=== PATIENT | female | born 1950 | race Caucasian/White ===

== ENCOUNTER 2020-03-21 06:52 | Observation (INO) | payer MEDICARE, OTHER ==
[2020-03-16 10:11] LABS: BASOPHILS # (AUTO) 0.1 (0.0-0.1); BASOPHILS % 1.1 % (0.0-1.0); EOSINOPHILS # (AUTO) 0.3 (0.0-0.4); EOSINOPHILS % 4.9 % (0.0-6.0); HEMOGLOBIN 12.6 g/dL (12.0-16.0); LYMPHOCYTES % 36.7 % (18.0-39.1); MEAN CORPUSCULAR HGB CONC 31.5 g/dL (31-35); MEAN CORPUSCULAR VOLUME 95.2 fL (81-99); MONOCYTES # (AUTO) 0.4 (0.2-0.8); MONOCYTES % 6.6 % (4.4-11.3); NEUTROPHILS # (AUTO) 2.8 (2.1-6.9); NEUTROPHILS % 50.5 % (38.7-80.0); PLATELET COUNT 176 x10e3/uL (140-360); RED CELL DISTRIBUTION WIDTH 13.2 % (11.7-14.4)
--- NOTE | 2020-03-16 10:17 | Diagnostic Imaging Report ---
EXAMINATION: CHEST 2 VIEWS INDICATION: Pre-operative COMPARISON: None FINDINGS: LINES/TUBES:None LUNGS:The lungs are mildly hyperinflated. No focal consolidation or pulmonary edema. PLEURA:No pleural effusion or pneumothorax. MEDIASTINUM:The cardiomediastinal silhouette appears normal in size and shape. BONES/SOFT TISSUES:No acute osseous injury. ABDOMEN:No free air under the diaphragm. IMPRESSION: No focal pneumonia or pulmonary edema. Signed by: Jovanni Pa MD on 03/16/2020 10:14 AM
[2020-03-16 10:25] LABS: ANION GAP 15.8 mmol/L (8-16); BLOOD UREA NITROGEN 9 mg/dL (7-26); BUN/CREATININE RATIO 12 (6-25); CALCIUM 9.6 mg/dL (8.4-10.2); CARBON DIOXIDE 26 mmol/L (22-29); CHLORIDE 104 mmol/L (98-107); CREATININE, SERUM 0.77 mg/dL (0.57-1.11); EST GLOMERULAR FILTRATION RATE > 60 ML/MIN (60-); GLUCOSE 117 mg/dL (74-118); POTASSIUM 3.8 mmol/L (3.5-5.1); SODIUM 142 mmol/L (136-145)
[2020-03-16 10:34] LABS: CLARITY,URINE CLEAR (CLEAR); COLOR,URINE YELLOW (YELLOW)
[2020-03-16 10:35] LABS: BILIRUBIN,URINE NEGATIVE (NEGATIVE); KETONES,URINE NEGATIVE (NEGATIVE); LEUKOCYTE ESTERASE ,URINE NEGATIVE (NEGATIVE); NITRITE,URINE NEGATIVE (NEGATIVE); PROTEIN,URINE DIPSTICK NEGATIVE (NEGATIVE); URINE UROBILINOGEN 0.2 mg/dL (0.2 - 1)
[~2020-03-21] VITALS: Ht 162.6 cm; Wt 93.9 kg
[~2020-03-21 06:52] MED LIST: ATENOLOL50 MG PO; CALCIUM CITRAT1 EA15 PO; CITALOPRAM HBR20 MG PO; COLLAGEN PLUS1 EACH PO; FOLIC ACID PO; GABAPENTIN300 MG PO; LATANOPROST2.5 ML OU; NORCO 10-325 T1 EACH PO; PAMELOR10 MG PO; PROTONIX20 MG PO; QUESTRAN PACKET4 GM PO; SIMVASTATIN80 MG PO; TIZANIDINE HCL4 MG PO; VALACYCLOVIR500 MG PO; VITAMIN D325 MCG PO
[2020-03-21] MEDS ORDERED: CEFAZOLIN SOD 1 GM/NS 50ML 100 ML IV ONE (08:58)
[2020-03-21] MEDS ORDERED: BACITRACIN 50,000 UNIT VIAL ONE (09:03)
[2020-03-21] MEDS ORDERED: NALOXONE HCL INJ 0.4 MG/ML AMP IV PRN (13:00)
[2020-03-21] MEDS ORDERED: DIPHENHYDRAMINE HCL INJ 50 MG/ML VIAL IV PRN (13:00)
[2020-03-21] MEDS: SODIUM CHLORIDE 0.9% 1000ML 1,000 ML IV SCH ×2 (13:00→22:23)
[2020-03-21] MEDS ORDERED: FENTANYL CITRATE/PF 100MCG/2 ML INJ ONE ×2 (13:28→15:31)
--- OUTSIDE RECORDS SUMMARY | 2020-03-21 14:12 | XMS REPORT | Clinical Summary ---
Author Author [facility] Address Unknown Phone Unavailable Care Team Providers Care Frit Burner Name Role Phone Tamara Carroll MD PCP Allergies No Known Allergies Medications End Date Status Medication Sig Dispensed Refills Start Date Active varenicline tartrate Take by mouth 0 (CHANTIX ORAL) 2 (two) times a day. Active atenoloL (TENORMIN) 25 MG Take 25 mg by 0 tablet mouth 2 (two) times a day. Active pantoprazole (PROTONIX) Take 40 mg by 0 40 MG EC tablet mouth daily. Active citalopram (CeleXA) 40 MG Take 40 mg by 0 tablet mouth daily. Active simvastatin (ZOCOR) 80 MG Take 80 mg by 0 tablet mouth nightly. 1/2 tab QHS Active niacin 500 MG tablet Take 500 mg 0 by mouth daily with breakfast. Active gabapentin (NEURONTIN) Take 300 mg 0 300 mg capsule by mouth 2 (two) times a day. Active nortriptyline (PAMELOR) Take 10 mg by 0 10 MG capsule mouth nightly. Active FOLIC ACID ORAL Take by 0 mouth. Active VITAMIN B COMPLEX ORAL Take by 0 mouth. Active cholecalciferol, vitamin Take by mouth 0 D3, (VITAMIN D3 ORAL) 2 (two) times a day. Active tiZANidine (ZANAFLEX) 4 Take 4 mg by 0 MG tablet mouth every 8 (eight) hours as needed for muscle spasms. Active CALCIUM ORAL Take 2 0 tablets by mouth 2 (two) times a day. Active cholestyramine (QUESTRAN) Take 1 packet 0 4 gram packet by mouth 2 (two) times a day with meals. Active Problems No known active problems Encounters Care Team Description Date Type Specialty Kayode Larios II, MD Encounter for gynecological examination (general) (routine) without abnormal findings (Primary Dx); Screening for malignant neoplasm of the cervix 12/13/2019 Office Visit Obstetrics and Gyne cology Tamara Carroll MD Encounter for screening mammogram for ma lignant neoplasm of breast (Primary Dx) 11/29/2019 Transcribe Access Orders Tamara Carroll MD Screening for osteoporosis (Primary Dx) 06/15/2019 Transcribe Access Orders after 03/21/2019 Family History Medical History Relation Name Comments Alcohol abuse Father Heart disease Mother Hyperlipidemia Mother Hypertension Mother Relation Name Status Comments Father Mother Social History Date Tobacco Use Types Packs/Day Years Used Former Smoker Smokeless Tobacco: Never Used Sex Assigned at Date Recorded Not on file Industry Job Start Date Occupation Not on file Not on file Not on file Travel End Travel History Travel Start No recent travel history available. Last Filed Vital Signs Reading Time Taken Comments Vital Sign 134/87 12/13/2019 10:46 AM FLIGHT DIRECTOR Blood Pressure 65 12/13/2019 10:46 AM FLIGHT DIRECTOR Pulse - - Temperature - - Respiratory Rate - - Oxygen Saturation - - Inhaled Oxygen Concentration 89.4 kg (197 lb) 12/13/2019 10:46 AM FLIGHT DIRECTOR Weight 162.6 cm (5' 4") 12/13/2019 10:46 AM FLIGHT DIRECTOR Height 33.81 12/13/2019 10:46 AM FLIGHT DIRECTOR Body Mass Index Plan of Treatment Health Maintenance Due Date Last Done Comments COLONOSCOPY SCREENING 2001 SHINGLES VACCINES (#1) 2001 65+ PNEUMOCOCCAL VACCINE 2016 (1 of 2 - PCV13) INFLUENZA VACCINE 05/19/2020 BREAST CANCER SCREENING 12/01/2021 12/01/2019, 04/15/2018, 12/26/2016 Procedures Comments Procedure Name Priority Date/Time Associated Diag nosis THINPREP TIS PAP AND HPV Routine 12/13/2019 Scree francois for malignant MRNA E6/E7 REFLEX HPV 11:12 AM FLIGHT DIRECTOR neoplasm of the cervix 16,18/45 MAMMO BREAST SCREEN Routine 12/01/2019 Encounter for screening TOMOSYNTHESIS BILATERAL 1:55 PM FLIGHT DIRECTOR mammogram for malignant neoplasm of breast BONE DENSITY Routine 06/17/2019 Screening for 8:41 AM CDT osteoporosis after 03/21/2019 Results * THINPREP TIS PAP AND HPV mRNA E6/E7 REFLEX HPV 16,18/45 (12/13/2019 11:12 AM FLIGHT DIRECTOR) Clinical None given [facility] information DIAGNOSTICS [place] Date of last NONE GIVEN [facility] menstrual DIAGNOSTICS period [place] Prev. pap: NONE GIVEN [facility] [place] Prev. bx: NONE GIVEN [facility] [place] Source Comment: Vagina, Cervix, [facility] Endocervix DIAGNOSTICS [place] Statement of Comment: [facility] adequacy Satisfactory for evaluation. DI[facility]NOST ICS Endocervical/transformation [place] zone component absent. Interpretation/ Comment: Negative for [facility] result: intraepithelial lesion or DIAGNOSTICS malignancy. [place] Comment Comment: [facility] This Pap test has been DIAGNOSTICS evaluated with Qumulo technology. Cytotechnologis Comment: [facility] t YL, CT(ASCP) DIAGNOSTICS CT screening location: [address], [place] [address] Comment Comment: [facility] EXPLANATORY NOTE: DIAGNOSTICS The Pap is a screening test [place] for cervical cancer. It is not a diagnostic test and is subject to false negative and false positive results. It is most reliable when a satisfactory sample, regularly obtained, is submitted with relevant clinical findings and history, and when the Pap result is evaluated along with historic and current clinical information. HPV mRNA e6/e7 Not Detected Not Detected [facility] Comment: [facility] This test was performed using ING II the APTIMA HPV Assay ([employer] This assay detects E6/E7 viral messenger RNA (mRNA) from 14 high-risk HPV types (16,18,31,33,35,39,45,51,52,56 ,58,59,66,68). The analytical performance characteristics of this assay have been determined by [facility]. The modifications have not been cleared or approved by the FDA. This assay has been validated pursuant to the CLIA regulations and is used for clinical purposes. Specimen Swab Resulting Agency Comment Performing Organization Information: Site ID: [id number] Name: [facility] Address: [address] [place] [address] Director: Dr. Azam Hopkins Site ID: [id number] Name: [facility] Address: [address] [place] [phone] Director: Azam Hopkins Performing Organization Address City/State/Zipcode Ph one Number Code On Network Coding [address] [address] [email or web address] [facility] [address] [place] [address] II * Mammo Breast Screen Tomosynthesis Bilateral (12/01/2019 1:55 PM FLIGHT DIRECTOR) Specimen Narrative Performed At PROCEDURE: MAMMO BREAST SCREEN TOMOSYNTHESIS BILATERA L [facility] Computer aided detection was utilized f or the interpretation of the digital bilateral screening mammography with to mosynthesis. COMPARISON: Prior studies dating back t o 12/26/2016 DENSITY: There are scattered areas of f ibroglandular density. There is no evidence of new irregular masses, archi tectural distortions or grouped calcifications. IMPRESSION: No mammographic evidence of malignancy. RECOMMENDATION: Comparison with physica l exam and annual screening mammography. BI-RADS 1: NEGATIVE This facility is accredited by the [facility] College of Radiology for Mammography. A negative x-ray report should not contreras y biopsy if a dominant or clinically suspicious mass is present. Not all c ancers are identified by x-ray. [id number] Performing Organization Address City/State/Zipcode Ph one Number [facility] [address] [place] [address] * Bone Density (06/17/2019 8:41 AM CDT) Specimen Narrative Performed At EXAMINATION: BONE DENSITY [facility] CLINICAL HISTORY: Z13.820 Encounter f or screening for osteoporosis, z13.820 COMPARISON: None. The results of this study expressed as bone mineral density (BMD) were as follows: AP spine (L1-L4) BMD: 1.215 g/cm2 T-Score: 0.3 Z score:1.2 Previous: No prior exam Dual Femur (Total Mean): BMD: 0.802 g/cm2 T-Score: -1.6 Z score:-0.8 Previous: No prior exam Left femoral neck: BMD: 0.793 g/cm2 T-Score: -1.8 Z score:-0.6 Right femoral neck: BMD: 0.813 g/cm2 T-Score: -1.6 Z score:-0.5 Dual femur FRAX: Risk factors: None. 10 year probability of fracture: 1. Major osteoporotic: 9.9% 2. Hip:1.4% Impression: Bone mineral density values as above. [id number] A copy of this scans including a report detailing these results will follow. Note: The world health organization (WH O) has classified the patient's T-score as follows: Above (-1) as normal (-1) to (-2.5) as low (osteopenia) Below (-2.5) as abnormally low (osteopo rosis, increased fracture risk) Procedure Note Interface, Radiology Results Incoming - 06/17/2019 9:19 AM CDT EXAMINATION: BONE DENSITY CLINICAL HISTORY: Z13.820 Encounter for screening for osteoporosis, z13.820 COMPARISON: None. The results of this study expressed as bone mineral density (BMD) were as follows: AP spine (L1-L4) BMD: 1.215 g/cm2 T-Score: 0.3 Z score:1.2 Previous: No prior exam Dual Femur (Total Mean): BMD: 0.802 g/cm2 T-Score: -1.6 Z score:-0.8 Previous: No prior exam Left femoral neck: BMD: 0.793 g/cm2 T-Score: -1.8 Z score:-0.6 Right femoral neck: BMD: 0.813 g/cm2 T-Score: -1.6 Z score:-0.5 Dual femur FRAX: Risk factors: None. 10 year probability of fracture: 1. Major osteoporotic: 9.9% 2. Hip:1.4% Impression: Bone mineral density values as above. [id number] A copy of this scans including a report detailing these results will follow. 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
--- OUTSIDE RECORDS SUMMARY | 2020-03-21 14:12 | XMS REPORT | Continuity of Care Document ---
Author Author [facility] t Organization [facility] Address [address] [place] [address] Phone Unavailable Care Team Providers Care Hop Picker Name Role Phone Glen FRANKLIN, Emmanuel Mcdonald PCP Huy ASHLEY Attphys Unavailable Harriet FRANKLIN, Sanjiv Headley Attphys Emmanuel Carroll MD Attphys Payers Payer Name Policy Type Policy Number Effective Date Expiration Date S raul [employer] HMO MCR [id number] xxxxxxxx 2017 00:00:00 Delvis Kruger Problems This patient has no known problems. Allergies, Adverse Reactions, Alerts This patient has no known allergies or adverse reactions. Family History Family Member Diagnosis Comments Start Date Stop Date Source Natural father Alcohol abuse Delvis Kruger Natural mother Heart disease Delvis Kruger Natural mother Hyperlipidemia [place] Natural mother Hypertension Delvis Kruger Social History Social Habit Start Date Stop Date Quantity Comments Source Sex Assigned At Loen seramarta Kruger Alcohol Comment 2019-12-13 00:00:00 2019-12-13 00:00:00 Occ Delvis Kruger Smoking Status Start Date Stop Date Source Former smoker 2019-12-13 00:00:00 2019-12-13 00:00:00 Delvis Kruger Medications Ordered Medication Name Filled Medication Name Start Date Stop Da te Current Medication? Ordering Clinician Indication Dosage Frequency Signature (SIG) Comments Components Source varenicline tartrate (CHANTIX ORAL) 2019-12-13 11:11:59 Yes Q.5D Take by mouth 2 (two) times a day. Delvis vargas atenoloL (TENORMIN) 25 MG tablet 2019-12-13 11:11:59 Yes 25mg Q.5D Take 25 mg by mouth 2 (two) times a day. Binta Kruger pantoprazole (PROTONIX) 40 MG EC tablet 2019-12-13 11:11:59 Yes 40mg QD Take 40 mg by mouth daily. Delvis rodriguez citalopram (CeleXA) 40 MG tablet 2019-12-13 11:11:59 Yes 40mg QD Take 40 mg by mouth daily. Delvis Kruger simvastatin (ZOCOR) 80 MG tablet 2019-12-13 11:11:59 Yes 80mg QD Take 80 mg by mouth nightly. 1/2 tab QHS Delvis Kruger niacin 500 MG tablet 2019-12-13 11:11:59 Yes 500mg QD Take 500 mg by mouth daily with breakfast. Delvis mckeon gabapentin (NEURONTIN) 300 mg capsule 2019-12-13 11:11:59 Yes 300mg Q.5D Take 300 mg by mouth 2 (two) times a day. Delvis Kruger nortriptyline (PAMELOR) 10 MG capsule 2019-12-13 11:11:59 Y es 10mg QD Take 10 mg by mouth nightly. Delvis echeverria FOLIC ACID ORAL 2019-12-13 11:11:59 Yes Take by mouth. Delvis Kruger VITAMIN B COMPLEX ORAL 2019-12-13 11:11:59 Yes Take by mouth. Delvis Kruger cholecalciferol, vitamin D3, (VITAMIN D3 ORAL) 2019-12-13 11:11: 59 Yes Q.5D Take by mouth 2 (two) times a day. Delvis Kruger tiZANidine (ZANAFLEX) 4 MG tablet 2019-12-13 11:11:59 Yes 4mg Q8H Take 4 mg by mouth every 8 (eight) hours as needed for muscle spasms. Delvis Kruger CALCIUM ORAL 2019-12-13 11:11:59 Yes 2{tbl } Q.5D Take 2 tablets by mouth 2 (two) times a day. Delvis Kruger cholestyramine (QUESTRAN) 4 gram packet 2019-12-13 11:11:59 Yes 1{packet} Q.5D Take 1 packet by mouth 2 (two) times a day with meals. Delvis Kruger Vital Signs Vital Name Observation Time Observation Value Comments Source Systolic blood pressure 2019-12-13 10:46:00 134 mm[Hg] Delvis Schaefferist Diastolic blood pressure 2019-12-13 10:46:00 87 mm[Hg] Delvis Schaefferist Heart rate 2019-12-13 10:46:00 65 /min [facility] Body height 2019-12-13 10:46:00 162.6 cm Delvis Kruger Body weight 2019-12-13 10:46:00 89.359 kg Delvis Kruger BMI 2019-12-13 10:46:00 33.81 kg/m2 Delvis Kruger Procedures Procedure Date / Time Performed Performing Clinician Sourc e THINPREP TIS PAP AND HPV MRNA E6/E7 REFLEX HPV 16,18/45 2019 11:12:00 Kayode Jaimes MAMMO BREAST SCREEN TOMOSYNTHESIS BILATERAL 2019-12-01 13:55 :00 Tamara Carroll BONE DENSITY 2019-06-17 08:41:00 Tamara Carroll ethodist Plan of Care Planned Activity Planned Date Details Comments Source Future Scheduled Test 2021-12-01 00:00:00 BREAST CANCER SCRE ENING [code = BREAST CANCER SCREENING] Ed[facility]son [facility] Future Scheduled Test 2020-05-19 00:00:00 INFLUENZA VACCINE [code = INFLUENZA VACCINE] [facility]son [facility] Future Scheduled Test 2016 00:00:00 65+ PNEUMOCOCCAL V ACCINE (1 of 2 - PCV13) [code = 65+ PNEUMOCOCCAL VACCINE (1 of 2 - PCV13)] [facility] Future Scheduled Test 2001 00:00:00 COLONOSCOPY SCREEN ING [code = COLONOSCOPY SCREENING] [facility] Future Scheduled Test 2001 00:00:00 SHINGLES VACCINES (#1) [code = SHINGLES VACCINES (#1)] Delvis Kruger Encounters Start Date/Time End Date/Time Encounter Type Admission Type [facility] Care Department Encounter ID Source 2019-12-13 00:00:00 2019-12-13 00:00:00 Outpatient KAYODE JAIMES [facility] [id number] Delvis Kruger Results Test Description Test Time Test Comments Results Result Comments Source CHEST 2 VIEWS 2020-03-16 10:13:00 [facility] [address] [place] [address] Patient Name: DAYANNA LEBLANC MR #: [id number] : 1950 Age/Sex: 69/F Req #: [id number] Adm Physician: Ordered by: NATIVIDAD ASHLEY MD Report #: [id number] Location: OR Room/Bed: Procedure: [id number] DX/CHEST 2 VIEWS Exam Date: 03/16/20 Exam Time: 0950 REPORT STATUS: Signed EXAMINATION: CHEST 2 VIEWS INDICATION: Pre-operative COMPARISON: None FINDINGS: LINES/TUBES:None LUNGS:The lungs are mildly hyperinflated. No focal consolidation or pulmonary edema. PLEURA:No pleural effusion or pneumothorax. MEDIASTINUM:The cardiomediastinal silhouette appears normal in size and shape. BONES/SOFT TISSUES:No acute osseous injury. ABDOMEN:No free air under the diaphragm. IMPRESSION: No focal pneumonia or pulmonary edema. Signed by: Andrea Wen MD on 03/16/2020 10:14 AM Dictated By: ANDREA WEN MD 1014 Transcribed By: LACI on 03/16/20 1014 COPY TO: NATIVIDAD ASHLEY MD THINPREP TIS PAP AND HPV mRNA E6/E7 REFLEX HPV 16,18/45 2019 11:01:00 Test Item Clinical information (test code = 80177-6) None given Date of last menstrual period (test code = 8665-2) NONE GIVEN Prev. pap: (test code = 66634-7) NONE GIVEN Prev. bx: (test code = 41675-6) NONE GIVEN Source (test code = 64198-5) Vagina, Cervix, Endocervix Statement of adequacy (test code = 24515-4) Satisfactory for evaluation.Endocervical/transformation zone component absent. Interpretation/result: (test code = 04840-4) Negative for intraepithelial lesion or malignancy. Comment (test code = 13696-7) This Pap test has been evaluated with computerassisted technology. Marine Fitter (test code = 11902-8) YL, CT(ASCP)CT screening location: [place] [address] Comment (test code = 5868487) EXPLANATORY NOTE: The Pap is a screening test for cervical cancer. It is not a diagnostic test and is subject to false negative and false positive results. It is most reliable when a satisfactory sa mple, regularly obtained, is submitted with relevant clinical findings and history, and when the Pap result is evaluated along with historic and current clinical information. HPV mRNA e6/e7 (test code = 97741-2) Not Detected Not Detected This test was performed using the APTIMA HPV Assay ([employer] This assay detects E6/E7 viral messenger RNA (mRNA) from 14high-risk HPV types (16,18,31,33,35,39,45,51,52,56,58,59,66,68). The analytical performance characteristics ofthis assay have been determined by [employer]. The modifications have not beencleared or approved by the FDA. This assay hasbeen validated pursuant to the CLIA regulationsand is used for clinical purposes. [place] (test code = RAC) Performing Organization Info rmation: Site ID: [id number] Name: [facility] Address: [address] [place] [phone] Director: Dr. Azam Hopkins Site ID: [id number] [facility]: [facility] Address: [address] [place] [phone] Director: Azam Hopkins [facility] [facility]
[2020-03-21] MEDS ORDERED: METOCLOPRAMIDE HCL 10 MG/2ML VIAL ONE (14:13)
[2020-03-21] MEDS ORDERED: MIDAZOLAM HCL 2 MG/2 ML VIAL ONE ×2 (14:21→15:31)
--- NOTE | 2020-03-21 14:57 | Diagnostic Imaging Report ---
EXAMINATION: KNEE LEFT 1-2 VIEWS INDICATION: Postoperative COMPARISON: None FINDINGS: Portable AP and crosstable lateral images of the left knee demonstrate immediate postoperative findings of left total knee replacement. Alignment appears anatomic. No unexpected fracture. Postoperative subcutaneous soft tissue emphysema. Small joint effusion. Surgical skin vega in place. IMPRESSION: Expected appearance status post left total knee replacement. Signed by: Jovanni Pa MD on 03/21/2020 2:54 PM
[2020-03-21] MEDS: HYDROMORPHONE 0.2MG/ML-SOD CHL 30ML PCA SYRINGE IV PRN (15:11)
[2020-03-21 15:41] VITALS: BP 127/78
[2020-03-21] MEDS ORDERED: ROPIVACAINE 0.5% 5 MG/ML 30 ML SDV ONE (16:24)
[2020-03-21] MEDS ORDERED: VASOPRESSIN INJ 20 UNIT/ML VIAL ONE (16:28)
[2020-03-21] MEDS ORDERED: ONDANSETRON HCL INJ 2MG/ML 2ML 2 MG/ML VIAL ONE (16:28)
[2020-03-21] MEDS ORDERED: LIDOCAINE HCL 2% LOCAL INJ 5 ML SDV VIAL INJ ONE (16:28)
[2020-03-21] MEDS ORDERED: SEVOFLURANE INHAL SOLN 250 ML PEN BTL ONE (16:28)
[2020-03-21] MEDS ORDERED: PROPOFOL IV EMULSION 10 MG/ML 20 ML VIAL ONE (16:28)
[2020-03-21] MEDS ORDERED: GLYCOPYRROLATE INJ 0.2 MG/ML VIAL ONE (16:28)
[2020-03-21] MEDS ORDERED: DEXAMETHASONE SOD PHOS INJ 4 MG/ML VIAL ONE (16:28)
[2020-03-21] MEDS ORDERED: EPHEDRINE SULFATE INJ 50 MG/ML VIAL ONE (16:28)
[2020-03-21] MEDS ORDERED: KETOROLAC TROMETHAMINE 30 MG/ML VIAL ONE (16:28)
--- NOTE | 2020-03-21 17:00 | NUR ---
while working with PT, patient voided around vo cath. vo continued to leak. Dr. Orozco notified and vo cath removed. Tip in place. patient aware to call nurse for assistance with bedpan or ambulating to restroom.
[2020-03-21] MEDS: ACETAMINOPHEN 1000 MG/100 ML IV PRN ×2 (17:16→23:39)
[2020-03-21] MEDS: CEFAZOLIN SOD 1 GM/NS 50ML 50 ML IV SCH (19:01)
--- NOTE | 2020-03-21 19:10 | NUR ---
BEDSIDE SHIFT REPORT RECEIVED FROM DAY RN. PT IS ALERT AND ORIENTED X4. RESPIRATIONS ARE REGULAR AND UNLABORED. IV 20 G RT HAND- SITE HEALTHY. MARIANA WRAP ON LEFT KNEE- DRY AND INTACT. 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 CALL LIGHT WITHIN REACH. BED IN LOW POSITION.
[2020-03-21 20:00] VITALS: BP 93/58
[2020-03-22] VITALS: BP 104/87
[2020-03-22] MEDS: CEFAZOLIN SOD 1 GM/NS 50ML 50 ML IV SCH ×2 (02:36→08:54)
[2020-03-22 04:00] VITALS: BP 124/65
[2020-03-22] MEDS ORDERED: HYDROMORPHONE 1MG/1ML INJ IV STA (04:32)
[2020-03-22] MEDS: ONDANSETRON HCL INJ 2MG/ML 2ML 2 MG/ML VIAL IV PRN ×3 (04:52→16:42)
[2020-03-22 05:01] LABS: HEMATOCRIT 27.9 % (34.2-44.1)
[2020-03-22 05:04] LABS: HEMOGLOBIN 8.5 g/dL (12.0-16.0)
[2020-03-22] MEDS: ACETAMINOPHEN 1000 MG/100 ML IV PRN ×2 (06:00→13:44)
--- NOTE | 2020-03-22 06:37 | Consultation ---
DATE OF CONSULTATION: REASON FOR CONSULTATION: Postop medical management. HISTORY OF PRESENT ILLNESS: The patient is a 69-year-old lady, status post left knee arthroplasty for end-stage osteoarthritis of the left knee, who has significant pain , but otherwise denies any fever, chills, nausea, vomiting, shortness of breath, or dizziness. PAST MEDICAL HISTORY: Significant for hypertension, hyperlipidemia, osteoarthritis, gastritis. SOCIAL HISTORY: She is . Retired. Smokes about half-a-pack per day. No alcohol. MEDICATIONS: See DEC. ALLERGIES: NONE. FAMILY HISTORY: Noncontributory at this time. PHYSICAL EXAMINATION: VITAL SIGNS: Temperature 97.9, pulse 68, blood pressure 104/87, sats 98% on room air. GENERAL: No apparent distress, lying in bed. NECK: Supple. No lymphadenopathy. CARDIOVASCULAR: Regular rate and rhythm. LUNGS: Clear to auscultation bilaterally. ABDOMEN: Good bowel sounds. Soft, nontender. EXTREMITIES: No clubbing or cyanosis. No seepage on the bandage. NEUROLOGIC: Moves all extremities x4. Nonfocal. ASSESSMENT AND PLAN: 1. Left knee pain. We will continue with her pain control, physical therapy. 2. Anemia. Check her CBC. 3. Hypertension. We will continue to monitor, systolics on the low side. 4. Hyperlipidemia. We will restart her cholesterol medicines at discharge. 5. Reflux disease. We will start her on proton pump inhibitor at discharge. Please see hospital chart for full details. MD DOMINGA Terrazas/WAGNER /[id number]
[2020-03-22] MEDS ORDERED: RIVAROXABAN 10 MG TABLET PO SCH (07:00)
--- NOTE | 2020-03-22 07:00 | NUR ---
RECEIVED PATIENT RESTING IN BED NO S/S OF DISTRESS. BED LOW, WHEELS LOCKED, SIDE RAILS X2. CALL LIGHT IN REACH WILL CONTINUE TO MONITOR PATIENT.
[2020-03-22] MEDS: HYDROMORPHONE 0.2MG/ML-SOD CHL 30ML PCA SYRINGE IV PRN (07:46)
[2020-03-22 08:08] VITALS: BP 117/73
[2020-03-22 08:31] VITALS: BP 117/73
--- NOTE | 2020-03-22 08:48 | NUR ---
PT DOES NOT WANT SNF WANTS TO RETURN HOME AND [facility] OFFICE SET UP, EMAILED OFFICE TO GET INFORMATION TO VERIFY THEN WILL PROVIDE TO CM, NURSE AND PT.
--- NOTE | 2020-03-22 08:54 | NUR ---
DR BUSTILLOS OFFICE PREARRANGED FOLLOWING DISCHARGE PLAN OF: HOME [address], [place] [phone] [facility] HE[facility] WITH [facility] CONFIRMED WITH [facility] [phone] DME 3 IN ONE COMMODE AND ROLLING WALKER WITH WHEELS. PROVIDED BY THERAPY [employer] [place] [phone] [place]T SIGNED AND ON CHART COPY LEFT WITH PATIENT GAVE CARD FOR QUESTIONS AND OR CONCERNS.
--- NOTE | 2020-03-22 09:04 | NUR ---
CORRECTION NOT IRENE JOINT ITS A ASHLEY JOINT
[2020-03-22] MEDS: SODIUM CHLORIDE 0.9% 1000ML 1,000 ML IV SCH (10:30)
--- NOTE | 2020-03-22 10:43 | NUR ---
ASSESSMENT: Spiritual concern Pt hopeful for successful recovery from recent procedure. Pt expressed some worry about family issues. Intervention: Provided hospitality, empathic listening and prayer. Outcome: Pt expressed appreciation for visit and support. No need to follow at this time. JOHN GARCIA Electric Lift Truck Driver Spiritual Care Department O: [phone]
[2020-03-22 11:29] VITALS: BP 135/74
[2020-03-22] MEDS ORDERED: HYDROCODONE/APAP 5MG-325MG TAB PO PRN (14:45)
[2020-03-22 16:02] VITALS: BP 175/88
[2020-03-22] MEDS ORDERED: XARELTO10 MG PO (17:56)
--- NOTE | 2020-03-22 18:05 | NUR ---
removed patients iv. catheter tip intact and pressure dressing applied.
--- NOTE | 2020-03-22 18:20 | NUR ---
PATIENT DISCHARGED FROM FACILITY. PATIENT GATHERED ALL PERSONAL BELONGINGS, DISCHARGE INSTRUCTIONS, AND FOLLOW UP INFORMATION. PATIENT LEFT UNIT IN WHEELCHAIR AND WENT HOME VIA PRIVATE AUTO.
--- NOTE | 2020-03-23 21:16 | Operative Report ---
DATE OF PROCEDURE: 03/21/2020 SURGEON: Herb Orozco MD PREOPERATIVE DIAGNOSIS: End-stage arthritis, left knee. POSTOPERATIVE DIAGNOSIS: End-stage arthritis, left knee. OPERATIONS AND PROCEDURES PERFORMED: The patient with a left total knee arthroplasty with a [employer] system with a size F femoral component, a size 5 tibial component, a 17 mm tibial insert, and 32 mm patella button. NETWORK INTERN: There was no web assistant. ANESTHESIA: General endotracheal intubation anesthesia. IV FLUIDS: Per the anesthesia record. BRIEF DESCRIPTION OF THE PATIENT'S OPERATIVE PROCEDURE: Ms. Leblanc was taken to the operating room and placed in supine position on the operating table. Following induction of general anesthesia as well as endotracheal intubation, the patient's left lower extremity was examined under anesthesia. She was found to have no gross abnormalities of the knee joint. There was mild effusion within the knee joint. She had a mild extension lag. Flexion was greater than 125 degrees. The patient's lower extremity was prepped and draped in standard surgical fashion. An incision was created along the long axis of the knee. This incision was carried through the skin and subcutaneous tissues to the level of the extensor mechanism. Full-thickness skin flaps were elevated medially and laterally to expose the extensor mechanism. The extensor mechanism was then incised along the medial border of the patella and the patella was everted laterally. Osteophytes were removed from the patella, femur and tibia. The patella was measured for later reaming. The anterior horns of the medial lateral meniscus were resected. The fat pad was also resected at this time. The knee was placed in flexion and retractors were placed appropriately about the knee joint. The femoral sizer was then affixed to the femur. The 5-in-1 cutting block was then affixed to the femur and the femoral cuts were performed. The intercondylar notch cutting block was then affixed to the femur and the notch cut was performed. The finishing block was affixed to the femur and the posterior chamfer cut was completed. The posterior knee retractor was then placed in the knee and the external tibial alignment guide was affixed to the tibia and adjusted appropriately. The proximal tibia was resected and the keel cutting device was then affixed to the femur. The keel cut was performed. Trial femoral and tibial components were then inserted into the knee. The soft tissues were balanced. The trial tibial insert was inserted into the knee and the knee was placed through range of motion and found to be stable. The patella was then reamed and a trial patella button was fixed on the undersurface of the patella. The knee was again placed through range of motion and the patella was found to track appropriately. All trial components were removed. Cement was mixed on the back table. The tibial component was also constructed on the back table. The femoral tibial and patellar components were then cemented into place. Once the cement had cured, the tourniquet was deflated and hemostasis was obtained. The knee was again placed through range of motion and found to be stable. The patella was found to track appropriately. The wounds were copiously irrigated with bacitracin laden normal saline. The extensor mechanism was repaired with nonabsorbable suture in a [id number] fashion. A multilayer closure was then performed. Sterile dressings were applied and the patient was then awakened and taken to postanesthesia care in stable condition. MD NIRAJ Brock/WAGNER /[id number]
== END 2020-03-22 18:20 | disposition home health service (06) ==
LOC: OR 06:52 → PACU V 12:51 → MED/SURG 14:49
PROVIDERS: ADMIT Specialist; ATTEND Specialist
DX: M17.12 Unilateral primary osteoarthritis, left knee (principal); I10 Essential (primary) hypertension; E78.5 Hyperlipidemia, unspecified; K21.9 Gastro-esophageal reflux disease without esophagitis
CPT/HCPCS: 27447; 36415 ×2; 71046; 73560; 80048; 81003; 85014; 85018; 85025; 86850; 86900; 86920; 87635; 93005; 97110; 97116 ×2; 97139 ×2; 97162; 97530 ×2; 99251; C1713; G0378 ×2; J0131 ×2; J0690 ×2; J1100; J1170; J1885; J2001; J2250; J2405 ×2; J2704; J2765; J2795; J3010; J7030 ×2

== ENCOUNTER → 2020-08-15 | Day surgery (SDC) | payer MEDICARE ==
[2020-08-10 11:56] LABS: BASOPHILS # (AUTO) 0.1 (0.0-0.1); BASOPHILS % 1.6 % (0.0-1.0); EOSINOPHILS # (AUTO) 0.3 (0.0-0.4); EOSINOPHILS % 5.4 % (0.0-6.0); HEMATOCRIT 40.3 % (34.2-44.1); HEMOGLOBIN 12.7 g/dL (12.0-16.0); LYMPHOCYTES # (AUTO) 1.9 (1.0-3.2); LYMPHOCYTES % 34.3 % (18.0-39.1); MEAN CORPUSCULAR HEMOGLOBIN 29.3 pg (28-32); MEAN CORPUSCULAR HGB CONC 31.5 g/dL (31-35); MEAN CORPUSCULAR VOLUME 92.9 fL (81-99); MONOCYTES # (AUTO) 0.4 (0.2-0.8); MONOCYTES % 7.8 % (4.4-11.3); NEUTROPHILS # (AUTO) 2.8 (2.1-6.9); NEUTROPHILS % 50.5 % (38.7-80.0); PLATELET COUNT 188 x10e3/uL (140-360); RED BLOOD COUNT 4.34 x10e6/uL (3.6-5.1)
[~2020-08-15] MED LIST changes: +ALENDRONATE SOD70 MG PO; +CEFAZOLIN SOD 1 GM/NS 50ML 100 ML IV ONE; +CHANTIX1 MG PO; +COLLAGEN TYPE PO; +DEXAMETHASONE SOD PHOS INJ 4 MG/ML VIAL ONE; +EPINEPHRINE 1 MG/ML 30ML VIAL ONE; +FENTANYL CITRATE/PF 100MCG/2 ML INJ ONE; +GLYCOPYRROLATE INJ 0.2 MG/ML VIAL ONE; +LIDOCAINE HCL 2% LOCAL INJ 5 ML SDV VIAL INJ ONE; +MIDAZOLAM HCL 2 MG/2 ML VIAL ONE; +MOBIC7.5 MG PO; +NEOSTIGMINE 1 MG/ML 10ML VIAL ONE; +NIACIN ER500 MG PO; +ONDANSETRON HCL INJ 2MG/ML 2ML 2 MG/ML VIAL ONE; +PROPOFOL IV EMULSION 10 MG/ML 20 ML VIAL ONE; +ROCURONIUM BROMIDE 10 MG/ML 5ML VIAL IV ONE; +ROPIVACAINE 0.5% 5 MG/ML 30 ML SDV ONE; +SEVOFLURANE INHAL SOLN 250 ML PEN BTL ONE; +VIT B12 PO; +XARELTO10 MG PO
[2020-08-15 15:25] VITALS: BP 125/84
== END | disposition home or self-care (01) ==
LOC: OR 09:00
PROVIDERS: ATTEND Specialist
DX: M75.121 Complete rotator cuff tear or rupture of right shoulder, not specified as traumatic (principal); M19.011 Primary osteoarthritis, right shoulder; M75.112 Incomplete rotator cuff tear or rupture of left shoulder, not specified as traumatic; M19.012 Primary osteoarthritis, left shoulder; M65.811 Other synovitis and tenosynovitis, right shoulder; M94.211 Chondromalacia, right shoulder; G89.29 Other chronic pain; K21.9 Gastro-esophageal reflux disease without esophagitis; I10 Essential (primary) hypertension; K29.40 Chronic atrophic gastritis without bleeding; F17.210 Nicotine dependence, cigarettes, uncomplicated; Z01.810 Encounter for preprocedural cardiovascular examination; Z01.812 Encounter for preprocedural laboratory examination; Z11.59 Encounter for screening for other viral diseases; Z68.33 Body mass index [BMI] 33.0-33.9, adult; Z86.73 Personal history of transient ischemic attack (TIA), and cerebral infarction without residual deficits
CPT/HCPCS: 29824; 29826; 29827; 36415; 85025; 93005; C1713; J0690; J1100; J2001; J2250; J2405; J2704; J2710; J2795; J3010; U0002

== ENCOUNTER → 2021-02-20 | Day surgery (SDC) | payer MEDICARE ==
[2021-02-18 14:01] LABS: BASOPHILS # (AUTO) 0.1 (0.0-0.1); BASOPHILS % 0.8 % (0.0-1.0); EOSINOPHILS # (AUTO) 0.3 (0.0-0.4); EOSINOPHILS % 3.5 % (0.0-6.0); HEMATOCRIT 41.1 % (34.2-44.1); HEMOGLOBIN 13.3 g/dL (12.0-16.0); LYMPHOCYTES # (AUTO) 3.2 (1.0-3.2); LYMPHOCYTES % 37.3 % (18.0-39.1); MEAN CORPUSCULAR HEMOGLOBIN 29.9 pg (28-32); MEAN CORPUSCULAR HGB CONC 32.4 g/dL (31-35); MEAN CORPUSCULAR VOLUME 92.4 fL (81-99); MONOCYTES # (AUTO) 0.8 (0.2-0.8); MONOCYTES % 8.8 % (4.4-11.3); NEUTROPHILS # (AUTO) 4.2 (2.1-6.9); NEUTROPHILS % 49.5 % (38.7-80.0); PLATELET COUNT 192 x10e3/uL (140-360); RED BLOOD COUNT 4.45 x10e6/uL (3.6-5.1); RED CELL DISTRIBUTION WIDTH 12.2 % (11.7-14.4)
[~2021-02-20] MED LIST changes: +BUSPIRONE HCL5 MG PO; +CRESTOR10 MG PO; +HYDROMORPHONE 1MG/1ML INJ ONE; +LIDOCAINE 2%/ EPINEPHRINE 20ML MDV ONE; -LIDOCAINE HCL 2% LOCAL INJ 5 ML SDV VIAL INJ ONE; +POVIDONE IODINE 0.05% 0.05 % ML PO ONE
[2021-02-20 11:00] VITALS: BP 120/78
== END | disposition home or self-care (01) ==
LOC: EDSTATUS 02-18 08:30 → OR 02-18 21:28 → DX 02-18 21:28 → OR 06:02 → EDSTATUS 03-06 08:30
PROVIDERS: ATTEND Specialist
DX: M75.112 Incomplete rotator cuff tear or rupture of left shoulder, not specified as traumatic (principal); M19.012 Primary osteoarthritis, left shoulder; M65.812 Other synovitis and tenosynovitis, left shoulder; M94.212 Chondromalacia, left shoulder; M75.121 Complete rotator cuff tear or rupture of right shoulder, not specified as traumatic; M19.011 Primary osteoarthritis, right shoulder; I10 Essential (primary) hypertension; R01.1 Cardiac murmur, unspecified; K21.9 Gastro-esophageal reflux disease without esophagitis; E78.5 Hyperlipidemia, unspecified; F17.210 Nicotine dependence, cigarettes, uncomplicated; Z01.810 Encounter for preprocedural cardiovascular examination; Z01.812 Encounter for preprocedural laboratory examination; Z01.818 Encounter for other preprocedural examination; Z20.822 Contact with and (suspected) exposure to COVID-19; Z86.73 Personal history of transient ischemic attack (TIA), and cerebral infarction without residual deficits
CPT/HCPCS: 29824; 29826; 29827; 36415; 71046; 85025; 93005; C1713; J0690; J1100; J1170; J2250; J2405; J2704; J2710; J3010; U0002